=== PATIENT | male | born 1975 | race Caucasian/White ===

== ENCOUNTER 2019-11-13 19:25 | Inpatient (IN) | payer OTHER ==
[~2019-11-13] VITALS: Ht 172.7 cm; Wt 91.6 kg
[2019-11-13 19:26] VITALS: BP 122/89
[2019-11-13] MEDS ORDERED: SPIRONOLACTONE25 MG PO (19:33)
[2019-11-13] MEDS ORDERED: ASA81BEC PO (19:34)
[2019-11-13] MEDS ORDERED: XARELTO10 M1 PO (19:34)
[2019-11-13] MEDS ORDERED: ENTOCORT EC 3 MG3 MG PO (19:34)
[2019-11-13] MEDS ORDERED: LIPITOR10 MG PO (19:34)
[2019-11-13 19:48] LABS: ABSOLUTE BASOPHILS 0.1 thou/uL (0.0-0.2); ABSOLUTE EOSINOPHILS 0.1 thou/uL (0.0-0.7); ABSOLUTE LYMPHOCYTES 2.6 thou/uL (0.8-5.3); ABSOLUTE MONOCYTES 0.7 thou/uL (0.0-1.2); ABSOLUTE NEUTROPHILS 7.5 thou/uL (1.6-8.1); BASOPHILS 1.1 %; EOSINOPHILS 1.2 %; HEMATOCRIT 40.6 % (42.0-52.0); HEMOGLOBIN 13.8 gm/dL (14.0-18.0); LYMPHOCYTES 23.7 %; MCH 31.5 pg (26.0-34.0); MCHC 33.9 g/dL (28.0-37.0); MCV 92.9 fL (80.0-100.0); MONOCYTES 6.2 %; MPV 8.2 fl. (7.2-11.1); NUCLEATED RBCS 0 /100WBC; PLATELET COUNT* 222 thou/uL (150-400); POLYS 67.8 %; RBC 4.37 mil/uL (4.50-6.00); RDW-CV 14.2 % (10.5-14.5); WBC 11.1 thou/uL (4.0-11.0)
[2019-11-13 19:55] LABS: CALCIUM 8.5 mg/dL (8.5-10.1); CREATININE 1.4 mg/dL (0.6-1.3)
[2019-11-13 20:04] LABS: POTASSIUM 2.8 mmol/L (3.5-5.1)
[2019-11-13 20:06] LABS: INR 1.3; PROTIME 13.6 Seconds (9.20-11.50)
[2019-11-13 20:10] LABS: ALBUMIN 3.8 g/dL (3.4-5.0); CK-MB MASS 1.1 ng/mL (<0.5-3.6); MAGNESIUM 1.6 mg/dL (1.8-2.4); TOTAL BILIRUBIN 2.9 mg/dL (<0.1-1.0); TOTAL PROTEIN 8.1 g/dL (6.4-8.2)
[2019-11-13 23:46] VITALS: BP 110/75
[2019-11-14 00:30] VITALS: BP 102/71
[2019-11-14 03:31] LABS: MAGNESIUM 1.5 mg/dL (1.8-2.4); POTASSIUM 3.2 mmol/L (3.5-5.1)
[2019-11-14 04:00] VITALS: BP 100/69
[2019-11-14 08:30] VITALS: BP 98/74
[2019-11-14] MEDS ORDERED: BUMEX2 MG PO (09:46)
[2019-11-14 12:27] VITALS: BP 95/58
[2019-11-14 13:23] LABS: AMP/METHAMP Negative (Negative); BARBITURATES Negative (Negative); BENZODIAZEPINES Negative (Negative); COCAINE Negative (Negative); METHADONE Negative (Negative); OPIATES POSITIVE (Negative); PCP Negative (Negative); THC POSITIVE (Negative)
--- NOTE | 2019-11-14 13:57 | EKG ---
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: : 1975 Requested By: Abhay Blair Order Number: [id number] MD: Calos Lazaro Measurements Intervals [place] Rate: 111 P: 59 SD: 149 QRS: -42 QRSD: 116 T: 12 QT: 382 QTc: 519 Interpretive Statements Sinus tachycardia Ventricular premature complex Probable left atrial enlargement Nonspecific IVCD with LAD No previous ECG available for comparison Electronically Signed On 11-14-2019 9:59:00 HY[employer] MECH[employer]IC by Calos Lazaro [email or web address] <ELECTRONICALLY SIGNED> By: Calos Lazaro MD, FAC 11/14/19 0959 25 25 Calos Lazaro MD, [facility] /EPI
[2019-11-14 16:57] VITALS: BP 100/76
[2019-11-14 20:00] VITALS: BP 120/77
[2019-11-15] VITALS: BP 114/77
[2019-11-15 04:00] VITALS: BP 91/71
[2019-11-15 04:19] LABS: ABSOLUTE BASOPHILS 0.1 thou/uL (0.0-0.2); ABSOLUTE EOSINOPHILS 0.1 thou/uL (0.0-0.7); ABSOLUTE MONOCYTES 1.1 thou/uL (0.0-1.2); ABSOLUTE NEUTROPHILS 6.1 thou/uL (1.6-8.1); BASOPHILS 1.3 %; EOSINOPHILS 0.7 %; HEMATOCRIT 36.7 % (42.0-52.0); HEMOGLOBIN 12.4 gm/dL (14.0-18.0); LYMPHOCYTES 28.8 %; MCH 31.8 pg (26.0-34.0); MCHC 33.7 g/dL (28.0-37.0); MCV 94.2 fL (80.0-100.0); MONOCYTES 10.5 %; MPV 8.3 fl. (7.2-11.1); NUCLEATED RBCS 0 /100WBC; PLATELET COUNT* 191 thou/uL (150-400); POLYS 58.7 %; RBC 3.89 mil/uL (4.50-6.00); RDW-CV 14.2 % (10.5-14.5); WBC 10.4 thou/uL (4.0-11.0)
[2019-11-15 04:54] LABS: ALBUMIN 3.5 g/dL (3.4-5.0); CALCIUM 8.3 mg/dL (8.5-10.1); CREATININE 1.6 mg/dL (0.6-1.3); POTASSIUM 4.1 mmol/L (3.5-5.1); TOTAL BILIRUBIN 3.6 mg/dL (<0.1-1.0); TOTAL PROTEIN 7.2 g/dL (6.4-8.2)
[2019-11-15 08:09] VITALS: BP 103/75
== END 2019-11-15 13:05 | disposition short-term general hospital (02) | DRG 280 ==
LOC: M.ERS 19:25 → M.2W 23:25 → M.TBA-ER 23:25 → M.2W 23:40
PROVIDERS: Family Medicine; Internal Medicine; ADMIT Internal Medicine
DX: I21.A1 Myocardial infarction type 2 (principal); I50.43 Acute on chronic combined systolic (congestive) and diastolic (congestive) heart failure; I42.8 Other cardiomyopathies; E87.6 Hypokalemia; F12.90 Cannabis use, unspecified, uncomplicated; F17.210 Nicotine dependence, cigarettes, uncomplicated; E83.42 Hypomagnesemia; I25.10 Atherosclerotic heart disease of native coronary artery without angina pectoris; I25.2 Old myocardial infarction; Z79.899 Other long term (current) drug therapy; Z79.01 Long term (current) use of anticoagulants; Z79.82 Long term (current) use of aspirin; Z86.73 Personal history of transient ischemic attack (TIA), and cerebral infarction without residual deficits; Z88.0 Allergy status to penicillin; Z82.49 Family history of ischemic heart disease and other diseases of the circulatory system